=== PATIENT | female | born 1955 | race Caucasian/White ===

== ENCOUNTER → 2017-03-26 | Outpatient (CLI) | payer OTHER ==
[~2017-03-26] MED LIST: IOHEXOL 240 MG/ML 50ML VIAL. ONE; IOHEXOL 300 MG/ML 75 ML VIAL. IV ONE
--- NOTE | 2017-03-26 10:51 | RAD ---
Indication: Sigmoid colon cancer. Diffuse abdominal pain. Technique: Axial images and coronal and sagittal reformatted images are provided. Oral contrast and 75 mL of intravenous Omnipaque 300 was administered without complication. Comparison is from May 01, 2005. One or more of the following individualized dose reduction techniques were utilized for this examination: 1. Automated exposure control 2. Adjustment of the mA and/or kV according to patient size 3. Use of iterative reconstruction technique Findings: There is atelectasis in the lung bases. There is no pleural effusion. The heart is not enlarged. Low-density lesion within the liver dome measures 9 mm, most likely small cyst, was not definite present on prior. Mild intrahepatic and extrahepatic biliary dilation is similar to prior. Gallbladder is unremarkable. Pancreas is fatty replaced. Spleen is not enlarged. There is no adrenal mass. Kidneys are symmetrically perfused. A few areas of cortical scarring in the kidneys are noted. Aorta is normal caliber. There is no mesenteric or retroperitoneal adenopathy. There is no dilated small bowel loop or air-fluid level. There is no definite small bowel mural thickening. Appendix is not clearly visualized. There are a few diverticula in the colon but no findings of diverticulitis. There is a bowel anastomotic suture line noted in the distal descending/proximal sigmoid colon. There is a small fat-containing umbilical hernia. Bladder is unremarkable. There is no adnexal mass. Calcified phleboliths are noted. There is no free pelvic fluid. There is no sidewall adenopathy. Largest sidewall lymph node on the right measures 5 mm short axis and on the left 6 mm. There are degenerative changes in the spine. Impression: 1. Low-density lesion in the liver dome is most likely simple cyst but is a change from prior. Given history of colon cancer, ultrasound should be considered to confirm cyst. 2. Postsurgical changes noted in the descending/sigmoid colon without evidence of local recurrence. 3. Pelvic sidewall lymph nodes are noted although are subcentimeter short axis. These can be reevaluated on follow-up exams. If there are any more recent outside comparisons, comparing to those exams also would be of benefit.
== END | disposition home or self-care (01) ==
LOC: CT 09:11
PROVIDERS: ATTEND Nurse Practitioner Family
DX: K57.30 Diverticulosis of large intestine without perforation or abscess without bleeding (principal); K42.9 Umbilical hernia without obstruction or gangrene; J98.11 Atelectasis; Z85.038 Personal history of other malignant neoplasm of large intestine; Z98.890 Other specified postprocedural states
CPT/HCPCS: 74177; Q9966; Q9967

== ENCOUNTER 2019-02-24 02:11 | Observation (INO) | payer MEDICAID, OTHER ==
[~2019-02-24] VITALS: Ht 162.6 cm; Wt 73.7 kg
--- NOTE | 2019-02-24 02:47 | PHYS DOC ---
Past History Past Medical History: Other Additional Past Medical Histor: colon cancer, cirrhosis of the liver Past Surgical History: Hysterectomy, Other Additional Past Surgical Histo: surgery for colon cancer Alcohol Use: Occasionally Drug Use: None Adult General Chief Complaint Chief Complaint: NAUSEA/VOMITING/DIARRHEA HPI HPI 63-year-old female presents with intermittent left-sided abdominal pain. She has had a cramping pain off and on for the last couple of days. She presents to the emergency room via EMS today because the pain overnight has gotten worse and is persistent. She is also had nausea and vomiting. She had a couple episodes of diarrhea yesterday. Patient has a history of colon cancer more than 10 years ago, but has not been getting follow-up colonoscopies. She had surgery at that time. She denies fever or chills. Review of Systems Review of Systems Constitutional: Denies fever or chills [] Eyes: Denies change in visual acuity, redness, or eye pain [] HENT: Denies nasal congestion or sore throat [] Respiratory: Denies cough or shortness of breath [] Cardiovascular: No additional information not addressed in HPI [] GI: Sided abdominal pain, nausea, vomiting, diarrhea [] : Denies dysuria or hematuria [] Musculoskeletal: Denies back pain or joint pain [] Integument: Denies rash or skin lesions [] Neurologic: Denies headache, focal weakness or sensory changes [] Endocrine: Denies polyuria or polydipsia [] All other systems were reviewed and found to be within normal limits, except as documented in this note. Current Medications Current Medications Current Medications Medications (Trade) Dose Ordered Sig/[facility] Start Time Stop Time Status Last Admin Dose Admin Ondansetron HCl (Zofran) 4 mg 1X ONCE 02/24/19 03:00 02/24/19 03:01 Sodium Chloride 1,000 ml @ 1,000 mls/hr 1X ONCE 02/24/19 03:00 02/24/19 03:59 Allergies Allergies Allergies Coded Allergies Type Severity Reaction Last Updated Verified No Known Drug Allergies 03/26/17 No Physical Exam Physical Exam Constitutional: Well developed, well nourished, mild acute distress, non-toxic appearance. [] HENT: Normocephalic, atraumatic, bilateral external ears normal, oropharynx moist, no oral exudates, nose normal. [] Eyes: PERRLA, EOMI, conjunctiva normal, no discharge. [] Neck: Normal range of motion, no tenderness, supple, no stridor. [] Cardiovascular:Heart rate regular rhythm, no murmur [] Lungs & Thorax: Bilateral breath sounds clear to auscultation [] Abdomen: Bowel sounds normal, soft, left lower quadrant, no masses, no pulsatile masses. [] Skin: Warm, dry, no erythema, no rash. [] Back: No tenderness, no CVA tenderness. [] Extremities: No tenderness, no cyanosis, no clubbing, ROM intact, no edema. [] Neurologic: Alert and oriented X 3, normal motor function, normal sensory fun ction, no focal deficits noted. [] Psychologic: Affect normal, judgement normal, mood normal. [] Current Patient Data Vital Signs Vital Signs Date Time Temp Pulse Resp B/P (MAP) Pulse Ox O2 Delivery O2 Flow Rate FiO2 02/24/19 02:14 97.4 71 18 95 Room Air EKG EKG [] Radiology/Procedures Radiology/Procedures [] Impressions: Examination: CT of the abdomen pelvis with IV contrast HISTORY: History of left lower quadrant abdominal pain COMPARISON: 03/26/2017 TECHNIQUE: Axial CT images of the abdomen pelvis were performed with IV contrast. Coronal and sagittal reformats are performed. Exposure: One or more of the following individualized dose reduction techniques were utilized for this examination: 1. Automated exposure control 2. Adjustment of the mA and/or kV according to patient size 3. Use of iterative reconstruction technique FINDINGS: Bibasilar lung airspace opacities likely atelectasis or infiltrates. No evidence of free air identified in the abdomen. Dilated appearing intrahepatic bile ducts and common bile duct. The common bile duct measuring 1.6 cm in transverse dimension increased compared to prior exam. Severe inflammatory fat stranding identified about the pancreas likely acute pancreatitis. The spleen, adrenals grossly appears unremarkable. The bilateral kidneys enhance symmetrically. The stomach is mildly distended. The small bowel is nondilated. Feces and gas noted in the colon. Few scattered sigmoid colon diverticulosis identified. The urinary bladder is mildly distended. The caliber of the aorta grossly appears unremarkable. Moderate degenerative changes lumbar spine most at L2-L3 vertebral level. IMPRESSION: 1. Severe inflammatory fat stranding identified about the pancreas likely acute pancreatitis. 2. Dilated appearing intrahepatic and common bile duct increased since prior exam. Distal common bile duct obstruction is not excluded. Electronically signed by: Mahendra Rosario MD (02/24/2019 4:01 AM) [facility] DICTATED AND SIGNED BY: MAHENDRA ROSARIO MD DATE: 02/24/19 0401 CC: ZIA MORELAND DO; ODALYS RODRIGUEZ MD ~ Course & Med Decision Making Course & Med Decision Making Pertinent Labs and Imaging studies reviewed. (See chart for details) The patient's CT scan is significant for pancreatitis. An obstructive process in the common bile duct could not be excluded. The patient will need an ultrasound in the morning. The patient also has a potassium of 2.5. Give her IV replacement. She has required fentanyl for pain control. She has been given a liter of normal saline. I spoke with Dr. Rodriguez and he would like to keep the patient at this facility at this time. He has accepted her for admission. Given the fact stranding around the pancreas, I will cover the patient with carbapenem. [place] [id number]. [] Dragon Disclaimer Dragon Disclaimer This electronic medical record was generated, in whole or in part, using a voice recognition dictation system. Departure Departure: Impression: Primary Impression: Acute pancreatitis Additional Impression: Hypokalemia Disposition: ADMITTED INPATIENT Admitting Physician: Odalys Rodriguez Condition: STABLE Referrals: ODALYS RODRIGUEZ MD (PCP) Problem Qualifiers Primary Impression: Acute pancreatitis Pancreatitis type: unspecified pancreatitis type Acute pancreatitis complication: unspecified Qualified Codes: K85.90 - Acute pancreatitis without necrosis or infection, unspecified ZIA MORELAND DO Feb 24, 2019 02:47
[2019-02-24] MEDS ORDERED: IV NORMAL SALINE 1,000ML 1,000 ML IV ONE (03:00)
[2019-02-24] MEDS ORDERED: ONDANSETRON PF 4 MG/2 ML VIAL. IVP ONE (03:00)
[2019-02-24 03:04] LABS: ALBUMIN 3.1 g/dL (3.4-5.0); ALBUMIN/GLOBULIN RATIO 0.8 (1.0-1.7); CALCIUM 8.7 mg/dL (8.5-10.1); CREATININE 1.2 mg/dL (0.6-1.0); GFR 45.1; TOTAL PROTEIN 6.9 g/dL (6.4-8.2)
[2019-02-24 03:06] LABS: POTASSIUM 2.5 mmol/L (3.5-5.1)
[2019-02-24 03:09] LABS: BASO % 0 % (0-3); EOS % 0 % (0-3); HEMATOCRIT 41.9 % (36.0-47.0); HEMOGLOBIN 14.3 g/dL (12.0-15.5); LYMPH # 0.7 x10^3/uL (1.0-4.8); LYMPH % 6 % (24-48); MEAN CORPUSCULAR HEMOGLOBIN 32 pg (25-35); MEAN CORPUSCULAR HGB CONC 34 g/dL (31-37); MEAN CORPUSCULAR VOLUME 93 fL (79-100); MONO # 0.7 x10^3/uL (0.0-1.1); MONO % 5 % (0-9); NEUT # 10.8 x10^3uL (1.8-7.7); NEUT % 89 % (31-73); PLATELET COUNT 239 x10^3/uL (140-400); RED BLOOD COUNT 4.51 x10^6/uL (3.50-5.40); RED CELL DISTRIBUTION WIDTH 12.4 % (11.5-14.5); WHITE BLOOD COUNT 12.2 x10^3/uL (4.0-11.0)
[2019-02-24] MEDS ORDERED: CONTRAST GIVEN MC PRN (03:15)
[2019-02-24] MEDS ORDERED: IOHEXOL 300 MG/ML 75 ML VIAL. IV ONE (03:30)
[2019-02-24] MEDS ORDERED: POTASSIUM CL 40MEQ IN 0.9%NACL 1,000 ML IV ONE (04:00)
--- NOTE | 2019-02-24 04:03 | RAD ---
Examination: CT of the abdomen pelvis with IV contrast HISTORY: History of left lower quadrant abdominal pain COMPARISON: 03/26/2017 TECHNIQUE: Axial CT images of the abdomen pelvis were performed with IV contrast. Coronal and sagittal reformats are performed. Exposure: One or more of the following individualized dose reduction techniques were utilized for this examination: 1. Automated exposure control 2. Adjustment of the mA and/or kV according to patient size 3. Use of iterative reconstruction technique FINDINGS: Bibasilar lung airspace opacities likely atelectasis or infiltrates. No evidence of free air identified in the abdomen. Dilated appearing intrahepatic bile ducts and common bile duct. The common bile duct measuring 1.6 cm in transverse dimension increased compared to prior exam. Severe inflammatory fat stranding identified about the pancreas likely acute pancreatitis. The spleen, adrenals grossly appears unremarkable. The bilateral kidneys enhance symmetrically. The stomach is mildly distended. The small bowel is nondilated. Feces and gas noted in the colon. Few scattered sigmoid colon diverticulosis identified. The urinary bladder is mildly distended. The caliber of the aorta grossly appears unremarkable. Moderate degenerative changes lumbar spine most at L2-L3 vertebral level. IMPRESSION: 1. Severe inflammatory fat stranding identified about the pancreas likely acute pancreatitis. 2. Dilated appearing intrahepatic and common bile duct increased since prior exam. Distal common bile duct obstruction is not excluded. Electronically signed by: Mahendra Russo MD (02/24/2019 4:01 AM) [facility]
[2019-02-24] MEDS ORDERED: ONDANSETRON PF 4 MG/2 ML VIAL. IV PRN (04:30)
[2019-02-24] MEDS ORDERED: MEROPENEM 1 GM in IV NORMAL SALINE 100ML 100 ML IV SCH ×2 (05:00→09:00)
[2019-02-24 06:04] VITALS: BP 126/73
[2019-02-24] MEDS ORDERED: ELECTROLYTE (ICU) PROTOCOL. MC PRN (06:30)
[2019-02-24] MEDS ORDERED: IV NORMAL SALINE 1,000ML 1,000 ML IV SCH (07:00)
[2019-02-24] MEDS ORDERED: ENOXAPARIN 40 MG/0.4 ML SYRINGE. SQ SCH (11:00)
[2019-02-24 11:07] VITALS: BP 134/76
[2019-02-24] MEDS ORDERED: ONDANSETRON ODT 4 MG TAB.RAPDIS PO PRN (11:45)
[2019-02-24] MEDS ORDERED: HYDROmorphone 12mg/30ml PCA 30 ML IV PRN (11:45)
[2019-02-24] MEDS ORDERED: NALOXONE 0.4 MG/ML VIAL. IV PRN (11:45)
--- NOTE | 2019-02-24 13:12 | HP ---
ADMIT DATE: 02/24/2019 HISTORY OF PRESENT ILLNESS: The patient is a 63-year-old female who came in through the Emergency Room. When talking to her, she says she has actually been having abdominal pain for several weeks, but felt it would go away. She has intermittent left-sided abdominal pain, cramping pain 9-12/24. The patient had to come in via EMS to the Emergency Room with nausea and vomiting. The patient also had some episodes of diarrhea, has a history in the past of colon cancer 10 years ago, but has not been following up and of course needs a followup on that eventually, but in any case, the patient was admitted with acute pancreatitis. The patient was stable hemodynamically, but obviously was in severe pain. Potassium was also low at 2.5, direct bilirubin, possible obstruction there, elevated liver enzymes and like. The patient is on prophylactic Lovenox. The patient otherwise on exam is in pain. Her blood pressure, however, is 134/76, respiratory rate 20, pulse 70, she is afebrile, 96% oxygen saturation. PAST MEDICAL HISTORY: Hypertension, colon cancer, history of pancreatitis, history of small bowel cancer, history of nausea, vomiting, tubal ligation, hysterectomy, stress incontinence, alcohol and tobacco abuse. SOCIAL HISTORY: The patient continues to smoke, has a [id number] history of smoking as well as alcohol use from time to time. Denies chewing tobacco. The patient is a full code. The patient has had a history of cirrhosis of the liver. FAMILY HISTORY: Father, unknown causes of . ALLERGIES: There are no known allergies. MEDICATIONS: The patient does not take any home meds, it appears. PHYSICAL EXAMINATION: VITAL SIGNS: The patient otherwise on exam as noted above with her vital signs stable. Basically, her blood pressure in the 130s/70, respiratory rate 20, pulse 70, afebrile. HEENT: Head atraumatic, normocephalic. Eyes: PERRLA without jaundice. The mouth and throat were normal. NECK: Supple, without JVD, carotid bruits or thyromegaly. LUNGS: Diminished throughout, but clear. CARDIOVASCULAR: Regular sinus rhythm. ABDOMEN: Soft, nontender, no rebounding or guarding. Positive bowel sounds. There is tenderness in that epigastric to left upper quadrant area. Awaiting for abdominal ultrasound. LABORATORY DATA: Lactic acid has come down. Sodium and potassium 138 and 2.5, lipase 17,000, white count 12, hemoglobin and hematocrit 14 and 41, no left shift. PLAN: The patient will be monitored carefully, placed on IV fluids. Careful monitoring. We get the abdominal ultrasound and then consider for possible transfer. IMPRESSION: Acute on top of chronic pancreatitis, cirrhosis of the liver, hyperbilirubinemia, elevated liver enzymes, hypokalemia. We put her on a [employer] pump because of the severity of her pain. ODALYS RODRIGUEZ MD DR: BELKYS/yan JOB#: [id number] / [id number]
[2019-02-24 15:03] VITALS: BP 138/66
--- NOTE | 2019-02-24 15:47 | RAD ---
Right upper quadrant abdominal ultrasound 02/24/2019 INDICATION: Elevated direct bilirubin. Pancreatitis. COMPARISON STUDY: CT of the abdomen and pelvis, earlier today Discussion: The pancreas is nonvisualized secondary overlying gas filled bowel. The majority of the liver is obscured. Significant intrahepatic biliary dilatation again noted. The liver is poorly visualized and predominantly subcostal in location. Liver is normal in size measuring approximately 16 cm longitudinally. The common bile duct measures 1.4 cm in diameter which is dilated. The gallbladder is poorly visualized. Cholelithiasis appears to be present with shadowing in the gallbladder lumen. Gallbladder appears partially contracted with borderline wall thickening given contracted state at 4 mm. Right kidney measures 9 cm in length and is unremarkable in appearance. Notably intrahepatic biliary dilatation is seen on CT from March 26, 2017. IMPRESSION: 1. Limited study 2. Significant intrahepatic biliary dilatation and dilatation of the common bile duct, similar to CT scan from earlier today. 3. Borderline gallbladder wall thickening. Cholelithiasis. Exam is felt to be limited for evaluation of acute cholecystitis. Consider MRI/MRCP and/or ERCP for further evaluation. Electronically signed by: Teto Alexis MD (02/24/2019 3:45 PM) [facility]
[2019-02-24 18:17] LABS: GFR 55.6
[2019-02-24 18:33] LABS: POTASSIUM 2.7 mmol/L (3.5-5.1)
--- NOTE | 2019-02-26 17:23 | DS ---
DATE OF DISCHARGE: 02/24/2019 HOSPITAL COURSE: A 63-year-old female who has been ill for about a month or so, came in through the Emergency Room, had a slight elevation of her white count but her potassium was low at 2.7. The patient had severe acute cholecystitis and severe pancreatitis. The patient possibly had blockage to her biliary duct as she had elevated liver enzymes, hyperbilirubinemia. Potassium was corrected with a situation of an electrolyte replacement therapy. She had a positive D-dimer, but in the meantime, the patient was transferred down to the [facility] because we did not have a surgical consultation available. Talked to Dr. Aguilar. He agreed to see the patient as soon as she got in to make further evaluation. The patient basically felt comfortable. We started her on a GIG TENDER. Her pain was excruciating. Her labs demonstrated a significant pancreatitis of 17,000 and her bilirubin was elevated, direct bilirubin was 2.1 and total bilirubin 3, AST of ____, alkaline phosphatase 391. Hepatitis screens were negative. IMPRESSION: Acute pancreatitis, acute cholecystitis, elevated liver enzymes, hyperbilirubinemia, hypokalemia (low potassium), moderate protein malnutrition. The patient was transferred via EMS down to the [facility] for further evaluation and treatment. ODALYS RODRIGUEZ MD DR: BELKYS/yan JOB#: [id number] / [id number]
== END 2019-02-24 19:04 | disposition short-term general hospital (02) ==
LOC: ER 02:11 → INTOOBSV 04:00 → 1 SOUTH 04:00
PROVIDERS: ADMIT Family Medicine; ATTEND Family Medicine
DX: K85.90 Acute pancreatitis without necrosis or infection, unspecified (principal); K74.60 Unspecified cirrhosis of liver; E80.6 Other disorders of bilirubin metabolism; R79.89 Other specified abnormal findings of blood chemistry; E87.6 Hypokalemia; F17.200 Nicotine dependence, unspecified, uncomplicated; Z90.710 Acquired absence of both cervix and uterus; Z85.038 Personal history of other malignant neoplasm of large intestine
CPT/HCPCS: 36415; 74177; 76705; 80048; 80053; 82248; 83605; 83690; 84145; 85025; 85379; 86705; 86709; 86803; 87040; 87340; 96361; 96365; 96366; 96368; 96372; 96375; 96376; 99284; G0378; J1170; J1650; J2185; J2405; J3010; Q9967; G0379; 99285-25; J7030

== ENCOUNTER 2019-03-08 09:03 | Emergency (ER) | payer MEDICAID ==
[~2019-03-08] VITALS: Ht 162.6 cm; Wt 77.0 kg
[2019-03-08] MEDS ORDERED: KETOROLAC 15 MG/ML VIAL. IVP ONE (09:15)
[2019-03-08] MEDS ORDERED: IV NORMAL SALINE 1,000ML 1,000 ML IV ONE (09:15)
[2019-03-08 10:06] LABS: HEMOGLOBIN 13.4 g/dL (12.0-15.5); RED BLOOD COUNT 4.28 x10^6/uL (3.50-5.40); RED CELL DISTRIBUTION WIDTH 12.2 % (11.5-14.5); WHITE BLOOD COUNT 11.8 x10^3/uL (4.0-11.0)
[2019-03-08] MEDS ORDERED: IOHEXOL 300 MG/ML 75 ML VIAL. IV ONE (10:15)
[2019-03-08 10:36] LABS: CALCIUM 8.9 mg/dL (8.5-10.1); CREATININE 1.1 mg/dL (0.6-1.0); GFR 49.8; POTASSIUM 3.9 mmol/L (3.5-5.1)
[2019-03-08 10:41] LABS: ALBUMIN 2.8 g/dL (3.4-5.0); ALBUMIN/GLOBULIN RATIO 0.7 (1.0-1.7); TOTAL BILIRUBIN 0.9 mg/dL (0.2-1.0); TOTAL PROTEIN 6.7 g/dL (6.4-8.2)
--- NOTE | 2019-03-08 11:01 | PHYS DOC ---
Text Text Diagnosis Postop abdominal pain To be transferred to for further evaluation General Chief Complaint: POST-OP PROBLEM Stated Complaint: post-op pain Time Seen by MD: 09:08 Source: patient Exam Limitations: no limitations History of Present Illness Initial Comments 63-year-old female who had the upper scopic cholecystectomy last week at presented to the emergency department with right upper quadrant abdominal pain radiates to the right shoulder lower described as a sharp constant pain for the past 48 hours no nausea no vomiting no diarrhea no fever no chills no bleeding from the wound sites Allergies: Coded Allergies: No Known Drug Allergies (Unverified , 03/26/17) Past Medical History Surgical History: cholecystectomy Social History Drugs: none Review of Systems All Other Systems: Reviewed and Negative Physical Exam General Appearance: WD/WN, mild distress Neck: non-tender, full range of motion, supple Respiratory: chest non-tender, lungs clear, normal breath sounds Cardiovascular: normal peripheral pulses, regular rate, rhythm, no edema Gastrointestinal: normal bowel sounds, no organomegaly, no pulsatile mass, tenderness Skin: normal color, warm/dry Lymphatic: no adenopathy, axilla node tender (R) ADRIEL LANCE MD Mar 08, 2019 11:01
--- NOTE | 2019-03-08 12:04 | RAD ---
PQRS Compliance Statement: One or more of the following individualized dose reduction techniques were utilized for this examination: 1. Automated exposure control 2. Adjustment of the mA and/or kV according to patient size 3. Use of iterative reconstruction technique CT abdomen/pelvis with contrast 03/08/2019 9:08 AM INDICATION: Right upper quadrant abdominal pain. Status post cholecystectomy one week ago. COMPARISON: CT abdomen/pelvis 02/24/2019 TECHNIQUE: Multiple axial CT images of the abdomen and pelvis were obtained after the intravenous administration of 63 mL Isovue-370. Coronal and sagittal reformats are provided. FINDINGS: There is bibasilar subsegmental atelectasis. Heart size is within normal limits. There is homogeneous enhancement of the hepatic parenchyma with stable cyst in the right hepatic dome measuring 11 mm. There is decrease in now moderate intrahepatic and extrahepatic biliary ductal dilatation. There is wall enhancement and thickening involving the common bile duct which may be seen with cholangitis. Cholecystectomy changes are present. Small volume free fluid is noted in the right upper quadrant abdomen. Spleen is normal in appearance. Adrenal glands are normal. Mild fatty atrophy of the pancreas. No significant peripancreatic plantar changes. Abdominal aorta is normal in course and caliber. No pathologically enlarged lymph nodes are identified in abdomen and pelvis. There is no free intraperitoneal air. The kidneys enhance symmetrically. There is no suspicious renal mass. There is no hydronephrosis. There are no suspected calculi within the kidneys, ureters or urinary bladder. Oral contrast was administered. Opacified bowel loops demonstrate normal mucosal fold pattern. Small and large bowel are normal in caliber. There is no evidence for bowel obstruction. There are no pericolonic inflammatory changes. Appendix is not definitively visualized. Mild colonic diverticulosis is noted. Urinary bladder is within normal limits given degree of distention. No suspicious pelvic mass is visualized. Moderate degenerative disc disease noted at L2-L3. No suspicious osseous abnormality is visualized. IMPRESSION: 1. Cholecystectomy changes are present with decrease in now moderate intrahepatic and extra hepatic biliary ductal dilatation. There is increased wall thickening and enhancement involving the common bile duct which may represent cholangitis. Correlate with hepatobiliary enzymes. 2. There is small volume free fluid identified in the right upper quadrant abdomen. Biliary leak remains in the differential. Electronically signed by: Radha Hannah MD (03/08/2019 12:01 PM) [facility]
[2019-03-08] MEDS ORDERED: PIPERACILLIN/TAZOBACTAM 3.375 GM in IV NORMAL SALINE 50ML 50 ML IV ONE (12:15)
[2019-03-08] MEDS ORDERED: MORPHINE SULFATE 4 MG/ML DISP.SYRIN. IV ONE ×2 (12:15→14:15)
[2019-03-08] MEDS ORDERED: IV NORMAL SALINE 50ML 50 ML ONE (12:17)
[2019-03-08] MEDS ORDERED: PIPERACILLIN/TAZOBACTAM 3.375 GM VIAL IV ONE (12:17)
[2019-03-08 12:47] VITALS: BP 128/77
[2019-03-08 12:51] LABS: AMORPHOUS SEDIMENT,UR PRESENT /HPF; BACTERIA,URINE 0 /HPF (0-FEW); BILIRUBIN,URINE NEG (NEG); CLARITY,URINE CLEAR; COLOR,URINE YELLOW; GLUCOSE,URINE NEG (NEG); NITRITE,URINE NEG (NEG); RBC,URINE OCC /HPF (0-2); SQUAMOUS EPITHELIAL CELL,UR FEW /LPF; UROBILINOGEN,URINE 0.2 mg/dL (0.2 mg/dL)
--- NOTE | 2019-03-09 06:08 | EKG ---
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
== END 2019-03-08 15:20 | disposition short-term general hospital (02) ==
LOC: ER 09:03
DX: G89.18 Other acute postprocedural pain (principal); R10.11 Right upper quadrant pain; Z90.49 Acquired absence of other specified parts of digestive tract
CPT/HCPCS: 36415; 74177; 80053; 81001; 83690; 85027; 93005; 96365; 96375; 96376; 99285; J1885; J2270; J2543; Q9967; J7030

== ENCOUNTER → 2019-03-15 | Outpatient (CLI) | payer MEDICAID ==
[2019-03-08 12:47] VITALS: BP 128/77
[~2019-03-15] MED LIST changes: +ACYC800T PO; +HYDR-3165 PO; -IOHEXOL 240 MG/ML 50ML VIAL. ONE; -IOHEXOL 300 MG/ML 75 ML VIAL. IV ONE; +OXYC5TAB4 PO
[2019-03-15 10:57] LABS: BASO # 0.1 x10^3/uL (0.0-0.2); BASO % 1 % (0-3); EOS # 0.5 x10^3/uL (0.0-0.7); EOS % 5 % (0-3); HEMATOCRIT 38.2 % (36.0-47.0); HEMOGLOBIN 13.3 g/dL (12.0-15.5); LYMPH # 1.4 x10^3/uL (1.0-4.8); LYMPH % 14 % (24-48); MEAN CORPUSCULAR HEMOGLOBIN 32 pg (25-35); MEAN CORPUSCULAR HGB CONC 35 g/dL (31-37); MEAN CORPUSCULAR VOLUME 91 fL (79-100); MONO # 0.8 x10^3/uL (0.0-1.1); MONO % 8 % (0-9); NEUT # 7.4 x10^3uL (1.8-7.7); NEUT % 73 % (31-73); PLATELET COUNT 361 x10^3/uL (140-400); RED BLOOD COUNT 4.21 x10^6/uL (3.50-5.40); RED CELL DISTRIBUTION WIDTH 12.2 % (11.5-14.5); WHITE BLOOD COUNT 10.2 x10^3/uL (4.0-11.0)
== END | disposition home or self-care (01) ==
LOC: LAB 10:17
PROVIDERS: ATTEND Internal Medicine
DX: K83.09 Other cholangitis (principal)
CPT/HCPCS: 36415; 85025

== ENCOUNTER 2019-03-18 10:01 | Emergency (ER) | payer MEDICAID ==
[~2019-03-18] VITALS: Ht 162.6 cm; Wt 77.0 kg
[2019-03-18] MEDS ORDERED: ACYC800T PO (10:25)
[2019-03-18] MEDS ORDERED: HYDR-3165 PO (10:25)
--- NOTE | 2019-03-18 10:25 | PHYS DOC ---
Past History Past Medical History: Cancer Additional Past Medical Histor: colon cancer, cirrohsis of the liver Past Surgical History: Cholecystectomy, Hysterectomy, Oophorectomy Additional Past Surgical Histo: surgery for colon cancer; partial amputation left foot Alcohol Use: Occasionally Drug Use: None Adult General Chief Complaint Chief Complaint: SKIN PROBLEM [facility] HPI Patient is a 63-year-old female who presented to ER today for evaluation of a painful rash on the right side of her buttock that spread to her right groin area started 4 days ago. SHe denies any fever. Patient denies any history of cancer that she is currently under chemotherapy treatment anything like that. All other ROS is negative unless otherwise noted in HPI Review of Systems Review of Systems See above Allergies Allergies Allergies Coded Allergies Type Severity Reaction Last Updated Verified No Known Drug Allergies 03/18/19 No Physical Exam Physical Exam See above Constitutional: Well developed, well nourished, no acute distress, non-toxic appearance. [] HENT: Normocephalic, atraumatic, bilateral external ears normal, oropharynx moist, no oral exudates, nose normal. [] Eyes: PERRLA, EOMI, conjunctiva normal, no discharge. [] Neck: Normal range of motion, no tenderness, supple, no stridor. [] Cardiovascular:Heart rate regular rhythm, no murmur [] Lungs & Thorax: Bilateral breath sounds clear to auscultation [] Abdomen: Bowel sounds normal, soft, no tenderness, no masses, no pulsatile masses. [] Skin: large amount of rash with blisters on right side buttock, right groin and right inner thigh, not crossing midline. Back: No tenderness, no CVA tenderness. [] Extremities: No tenderness, no cyanosis, no clubbing, ROM intact, no edema. [] Neurologic: Alert and oriented X 3, normal motor function, normal sensory function, no focal deficits noted. [] Psychologic: Affect normal, judgement normal, mood normal. [] Current Patient Data Vital Signs Vital Signs Date Time Temp Pulse Resp B/P (MAP) Pulse Ox O2 Delivery O2 Flow Rate FiO2 03/18/19 10:10 97.7 91 18 97 Room Air EKG EKG [] Radiology/Procedures Radiology/Procedures [] Course & Med Decision Making Course & Med Decision Making Pertinent Labs and Imaging studies reviewed. (See chart for details) [] Dragon Disclaimer Dragon Disclaimer This electronic medical record was generated, in whole or in part, using a voice recognition dictation system. Departure Departure: Impression: Primary Impression: Shingles rash Disposition: HOME, SELF-CARE Condition: STABLE Referrals: ODALYS RODRIGUEZ MD (PCP) please follow up with your doctor on Friday for reevaluation Patient Instructions: Shingles Scripts Oxycodone Hcl (OXYCODONE HCL IMMED.RELEASE ) 5 Mg Tablet 5 MG PO PRN Q6HRS PRN for PAIN, #20 TAB Prov: ODALYS IBARRA DO 03/18/19 Acyclovir (ACYCLOVIR) 800 Mg Tablet 1 TAB PO 5XDAY for shingles for 10 Days, #50 TAB Prov: ODALYS IBARRA DO 03/18/19 ODALYS IBARRA DO Mar 18, 2019 10:25
[2019-03-18] MEDS ORDERED: OXYC5TAB4 PO (10:39)
[2019-03-18 10:45] VITALS: BP 105/77
== END 2019-03-18 10:46 | disposition home or self-care (01) ==
LOC: ER 10:01
DX: B02.9 Zoster without complications (principal)
CPT/HCPCS: 99283

== ENCOUNTER 2019-06-28 23:15 | Observation (INO) | payer MEDICAID ==
[~2019-06-28] VITALS: Ht 162.6 cm; Wt 72.0 kg
--- NOTE | 2019-06-28 23:28 | PHYS DOC ---
Past History Past Medical History: Cancer Additional Past Medical Histor: colon cancer, cirrohsis of the liver Past Surgical History: Cholecystectomy, Hysterectomy, Oophorectomy Additional Past Surgical Histo: surgery for colon cancer; partial amputation left foot Alcohol Use: Occasionally Drug Use: None General Adult HPI: HPI: ..." Oh....please give me something.. ..I can't stop vomiting..I am dry heaving... my gut hurts all over....I am so sick... I feel like got...the flu...or something...'[ Patient is a 63 year old female who presents with above hx and complaints of a bdomen pain, nausea, vomiting, currently dry heaving, malaise, arthralgia, myalgia. Patient has generalized abdomen pain with some localization to left upper quadrant and mid abdomen. Patient currently dry heaving. Patient states she did eat a veggie burger at approximately 1700 hrs. with sunflower seeds. At 2000 hours patient has generalized severe abdomen pain and active vomiting. Patient states she vomited up her entire 1700 meal and continued to vomit or dry heaves since then. Patient rates her generalized abdomen pain is 10 out of 10. Nothing relieves the pain. Patient does have history of previous abdomen surgeries including hysterectomy, oophorectomy, cholecystectomy. Patient has had recent travel to [place] on Friday. Patient denies any specific ill contacts. Patient denies any history significant immunosuppression. Patient has known history of diabetes, colon cancer, hypertension and tobacco use. Patient normally follows with Dr. Butts. Review of Systems: Review of Systems: Constitutional: Subjective history of fever or chills Eyes: Denies change in visual acuity HENT: Denies nasal congestion or sore throat Respiratory: History of a nonproductive cough and shortness of breath Cardiovascular: Denies chest pain or edema GI: Complains of severe abdominal pain, nausea, vomiting, . : Denies dysuria Musculoskeletal: Complains of generalized myalgia. Integument: Denies rash Neurologic: Denies headache, focal weakness or sensory changes Endocrine: Denies polyuria or polydipsia Lymphatic: Denies swollen glands Psychiatric: Denies depression or anxiety Heart Score: Risk Factors: Risk Factors: DM, Current or recent (<one month) smoker, HTN, HLP, family history of CAD, obesity. Risk Scores: Score 0 - 3: 2.5% MACE over next 6 weeks - Discharge Home Score 4 - 6: 20.3% MACE over next 6 weeks - Admit for Clinical Observation Score 7 - 10: 72.7% MACE over next 6 weeks - Early Invasive Strategies Family History: Family History: Noncontributory to presentation Current Medications: Current Meds: See nursing for home meds Allergies: Allergies: Allergies Coded Allergies Type Severity Reaction Last Updated Verified No Known Drug Allergies 03/18/19 No Physical Exam: PE: Constitutional: in acute distress, non-toxic appearance. [] HENT: Normocephalic, atraumatic, bilateral external ears normal, oropharynx dry, no oral exudates, nose normal. [] Edentulous Eyes: PERRLA, EOMI, conjunctiva normal, no discharge. [] Neck: Normal range of motion, no tenderness, supple, no stridor. [] Cardiovascular: Bradycardia heart rate regular rhythm, no murmur [] PMI to the left Lungs & Thorax: Bilateral breath sounds equal at apex with scattered wheezes on auscultation [] Abdomen: Bowel sounds hyperactive, soft, generalized tenderness, no masses, no pulsatile masses. Old surgery scars Skin: Warm, dry, no erythema, no rash. [] Back: No tenderness, no CVA tenderness. [] Extremities: No tenderness, no cyanosis, no clubbing, ROM intact, no edema. Arthritic changes Neurologic: Alert and oriented X 3, moves extremities on request distal sensory function, no gross focal deficits noted. [] Psychologic: Affect anxious, judgement normal, mood tearful EKG: EKG: My interpretation of EKG shows a sinus bradycardia at 54 bpm. Does have some contour abnormality in the anterior lateral leads. But no findings of acute STEMI with contralateral changes. There are inverted T waves in V1,2 and 3 [] Radiology/Procedures: Radiology/Procedures: [] IMAGING REPORT Signed PATIENT: SARAH REICH ACCOUNT: [id number] : 1955 LOCATION: ER AGE: 63 SEX: F EXAM STATUS: REG ER ORD. PHYSICIAN: RAMBO MARTINEZ MD REASON: ABD. PAIN, N/V, X 2 DAYS PROCEDURE: ACUTE ABDOMEN SERIES EXAM: Frontal view of the chest, AP views of the abdomen in upright and supine positions. CLINICAL INDICATION: Abdominal pain, nausea vomiting COMPARISON: None. FINDINGS and IMPRESSION: The heart is not enlarged. Aorta is tortuous. Linear opacities left greater the right midlung likely scarring/atelectasis. No lobar consolidation. No pleural effusion or pneumothorax. No abnormal small or large bowel dilatation. Moderate colonic stool content. No abnormal soft tissue mass effect. No suspicious calcifications are seen. No free intraperitoneal gas. Cholecystectomy clips are seen. Leftward curvature of the lumbar spine. Electronically signed by: David Tobar MD (06/29/2019 12:46 AM) [facility] DICTATED AND SIGNED BY: DAVID TOBAR MD DATE: 06/29/1947 CC: ODALYS RODRIGUEZ MD; RAMBO MARTINEZ MD ~ Course & Med Decision Making: Course & Med Decision Making Pertinent Labs and Imaging studies reviewed. (See chart for details) Pt. admitted to Dr. Rodriguez for further eval. and tx. Impression: 1. Acute abdomen pain 2. Nausea vomiting 3. Viral syndrome 4. Elevated bili total 3.2 direct 1.5, AST 303, ALT 120, alk phos 156 5. Diabetes glucose 133 6. Viral syndrome [] Dragon Disclaimer: Tiki Disclaimer: This electronic medical record was generated, in whole or in part, using a voice recognition dictation system. Departure Departure: Disposition: 01 HOME/RESIDENCE PRIOR TO ADM Condition: STABLE Referrals: ODALYS RODRIGUEZ MD (PCP) Tiki Disclaimer This chart was dictated in whole or in part using Voice Recognition software in a busy, high-work load, and often noisy Emergency Department environment. It may contain unintended and wholly unrecognized errors or omissions. RAMBO MARTINEZ MD Jun 28, 2019 23:28
[2019-06-28] MEDS ORDERED: IV RINGERS SOLUTION,LACTATED 1,000 ML IV SCH (23:45)
[2019-06-29 00:02] LABS: BASO % 0 % (0-3); EOS # 0.1 x10^3/uL (0.0-0.7); EOS % 1 % (0-3); HEMATOCRIT 44.3 % (36.0-47.0); HEMOGLOBIN 15.1 g/dL (12.0-15.5); LYMPH # 1.3 x10^3/uL (1.0-4.8); LYMPH % 16 % (24-48); MEAN CORPUSCULAR HEMOGLOBIN 31 pg (25-35); MEAN CORPUSCULAR HGB CONC 34 g/dL (31-37); MEAN CORPUSCULAR VOLUME 90 fL (79-100); MONO # 0.6 x10^3/uL (0.0-1.1); MONO % 7 % (0-9); NEUT # 6.6 x10^3uL (1.8-7.7); NEUT % 77 % (31-73); PLATELET COUNT 190 x10^3/uL (140-400); RED BLOOD COUNT 4.92 x10^6/uL (3.50-5.40); RED CELL DISTRIBUTION WIDTH 13.4 % (11.5-14.5); WHITE BLOOD COUNT 8.6 x10^3/uL (4.0-11.0)
--- NOTE | 2019-06-29 00:04 | EKG ---
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 CONSIDER ANTEROLATERAL MYOCARDIAL DAMAGE Electronically Signed On 06-29-2019 11:23:13 CDT by Diaz Coombs
[2019-06-29] MEDS ORDERED: ONDANSETRON PF 4 MG/2 ML VIAL. ONE (00:05)
[2019-06-29 00:12] LABS: CALCIUM 9.7 mg/dL (8.5-10.1); GFR 55.6; POTASSIUM 3.4 mmol/L (3.5-5.1)
[2019-06-29 00:24] LABS: ALBUMIN 3.7 g/dL (3.4-5.0); DIRECT BILIRUBIN 1.5 mg/dL (0.0-0.2); MAGNESIUM 1.8 mg/dL (1.8-2.4); TOTAL BILIRUBIN 3.2 mg/dL (0.2-1.0); TOTAL PROTEIN 7.2 g/dL (6.4-8.2)
[2019-06-29] MEDS ORDERED: ONDANSETRON PF 4 MG/2 ML VIAL. IVP ONE (00:30)
--- NOTE | 2019-06-29 00:49 | RAD ---
EXAM: Frontal view of the chest, AP views of the abdomen in upright and supine positions. CLINICAL INDICATION: Abdominal pain, nausea vomiting COMPARISON: None. FINDINGS and IMPRESSION: The heart is not enlarged. Aorta is tortuous. Linear opacities left greater the right midlung likely scarring/atelectasis. No lobar consolidation. No pleural effusion or pneumothorax. No abnormal small or large bowel dilatation. Moderate colonic stool content. No abnormal soft tissue mass effect. No suspicious calcifications are seen. No free intraperitoneal gas. Cholecystectomy clips are seen. Leftward curvature of the lumbar spine. Electronically signed by: David Palacio MD (06/29/2019 12:46 AM) [place]
[2019-06-29] MEDS ORDERED: FAMOTIDINE 20 MG/2 ML VIAL ONE (01:05)
[2019-06-29] MEDS ORDERED: MAGNESIUM HYDROXIDE 2,400 MG/30 ML ORAL.SUSP. ONE (01:05)
[2019-06-29] MEDS ORDERED: ONDANSETRON PF 4 MG/2 ML VIAL. IVP PRN (01:30)
[2019-06-29] MEDS ORDERED: MAGNESIUM HYDROXIDE 2,400 MG/30 ML ORAL.SUSP. PO ONE (01:30)
[2019-06-29] MEDS: IV RINGERS SOLUTION,LACTATED 1,000 ML IV SCH ×2 (01:30→11:30)
[2019-06-29] MEDS ORDERED: FAMOTIDINE 20 MG/2 ML VIAL IVP ONE (01:30)
[2019-06-29 01:37] LABS: BARBITURATES NEG (NEG); BENZODIAZEPINES NEG (NEG); CANNABINOIDS NEG (NEG); COCAINE NEG (NEG); METHADONE NEG (NEG); OPIATES NEG (NEG); PHENCYCLIDINE NEG (NEG)
[2019-06-29 01:41] LABS: BACTERIA,URINE FEW /HPF (0-FEW); BILIRUBIN,URINE NEG (NEG); CLARITY,URINE CLEAR; COLOR,URINE YELLOW; GLUCOSE,URINE NEG (NEG); NITRITE,URINE NEG (NEG); RBC,URINE 0 /HPF (0-2); SQUAMOUS EPITHELIAL CELL,UR OCC /LPF
[2019-06-29 01:51] LABS: AMPHETAMINE/METHAMPHETAMINE NEG (NEG)
[2019-06-29 04:00] VITALS: BP 157/84
[2019-06-29 05:24] LABS: INFLUENZA A PATIENT NEGATIVE (NEGATIVE); INFLUENZA B PATIENT NEGATIVE (NEGATIVE)
[2019-06-29] MEDS: ACETAMINOPHEN 325 MG TABLET PO PRN ×2 (06:02→21:33)
[2019-06-29 06:29] VITALS: BP 139/89
[2019-06-29] MEDS ORDERED: IPRATRPIUM/ALBUTEROL 0.5/2.5MG 3 ML NEBU. NEB SCH (08:00)
[2019-06-29 09:35] LABS: ALBUMIN 2.9 g/dL (3.4-5.0); CALCIUM 8.8 mg/dL (8.5-10.1); CREATININE 1.2 mg/dL (0.6-1.0); DIRECT BILIRUBIN 2.1 mg/dL (0.0-0.2); GFR 45.1; POTASSIUM 3.1 mmol/L (3.5-5.1); TOTAL BILIRUBIN 4.8 mg/dL (0.2-1.0)
[2019-06-29 11:19] VITALS: BP 121/69
--- NOTE | 2019-06-29 13:11 | HP ---
ADMIT DATE: 06/29/2019 HISTORY OF PRESENT ILLNESS: A 63-year-old female who came into the Emergency Room. The patient has been having for the last 24 hours severe nausea and vomiting with abdominal pain. The patient has been unable to keep anything down. She has been having dry heave. She also complains of left upper quadrant and mid abdominal pain. She notes this has been going on for about 8-10 hours, recognizes the pain as approximately 10/10. The patient has previous histories of surgery in the past. Because of the patient's severe abdominal pain with nausea and vomiting intractable, the patient was admitted in the hospital for further evaluation and treatment. PAST MEDICAL HISTORY: Colon cancer, cirrhosis of the liver, diabetes, COPD, pancreatitis, incontinence, amputation of the left foot and alcohol abuse. IMMUNIZATION: Influenza vaccine up-to-date. ALLERGIES: No known allergies. FAMILY HISTORY: Family's deaths are unknown. SOCIAL HISTORY: The patient smokes about a pack of cigarettes a day, [id number] history of smoking and has not had a drink here for the last couple of weeks as the bars have been closed, otherwise she has drunk fairly heavily in the past, has cirrhosis of the liver. REVIEW OF SYSTEMS: The patient does have fever and chills. Denies any chest pain. Does have some mild shortness of breath, does have severe nausea and vomiting intractable with severe abdominal pain mid epigastric to left upper quadrant area. She denies any melena, hematochezia, hematemesis. Urinating okay and her extremities, except for the left foot of course are normal. Neurologically baseline. PHYSICAL EXAMINATION: GENERAL: This is a pleasant white female, in moderate amount of discomfort. VITAL SIGNS: Her blood pressure varies 157/84, respiratory rate 20, pulse 90, temperature 101.5. HEENT: The patient's otherwise head is atraumatic, normocephalic. Eyes: PERRL. No jaundice noted. Mouth and throat: Poor dentition. NECK: Supple. LUNGS: Diminished primarily in the bases. CARDIOVASCULAR: Regular sinus rhythm. S1, S2. ABDOMEN: Definite tenderness in the right upper quadrant area and epigastric area to light touch, some mild guarding, no rebounding. Positive bowel sounds. Stool hemoccult negative. NEUROLOGIC: The patient is alert and oriented x 3. LABORATORY DATA: The patient's CBC is unremarkable. Chemistries show marked elevation of her AST of 369, ALT of 282, alkaline phosphatase 173, bili normal, lipase ____, albumin 3.1. Electrolytes: Potassium (____). Protime normal. Drug screen negative. UA unremarkable. Serology: Influenza A, B negative. Apparently has been swabbed for COVID-19 that is pending. IMPRESSION: Therefore of severe nausea, vomiting, intractable abdominal pain, history of cirrhosis of the liver, abnormal liver enzymes, dehydration, abdominal series unremarkable, history of alcoholism, dehydration as noted, type 2 diabetes. PLAN: The patient will be monitored, placed on fluids, electrolyte replacement. We will try to do an abdominal ultrasound and make further evaluation on her, get her nausea and vomiting under control, fluids. Wait for COVID-19 report to be returned. ODALYS RODRIGUEZ MD DR: BELKYS/yan JOB#: [id number] / [id number]
[2019-06-29 15:20] VITALS: BP 128/81
[2019-06-29] MEDS ORDERED: ALBU2.5V8 IH (15:33)
[2019-06-29] MEDS ORDERED: BUDE90AE INH (15:33)
[2019-06-29] MEDS ORDERED: POTASSIUM CHLORIDE 20 MEQ TABLET.ER. PO ONE (19:15)
[2019-06-29 19:50] VITALS: BP 114/81
[2019-06-29 23:41] VITALS: BP 100/64
[2019-06-30] MEDS ORDERED: ACETAMINOPHEN 325 MG TABLET PO PRN (01:45)
[2019-06-30 05:51] VITALS: BP 90/67
[2019-06-30 06:02] LABS: BASO % 0 % (0-3); EOS # 0.4 x10^3/uL (0.0-0.7); EOS % 6 % (0-3); HEMATOCRIT 41.4 % (36.0-47.0); HEMOGLOBIN 13.9 g/dL (12.0-15.5); LYMPH # 0.9 x10^3/uL (1.0-4.8); LYMPH % 14 % (24-48); MEAN CORPUSCULAR HEMOGLOBIN 31 pg (25-35); MEAN CORPUSCULAR HGB CONC 34 g/dL (31-37); MEAN CORPUSCULAR VOLUME 92 fL (79-100); MONO # 0.5 x10^3/uL (0.0-1.1); MONO % 8 % (0-9); NEUT # 4.8 x10^3uL (1.8-7.7); NEUT % 73 % (31-73); PLATELET COUNT 137 x10^3/uL (140-400); RED BLOOD COUNT 4.52 x10^6/uL (3.50-5.40); RED CELL DISTRIBUTION WIDTH 13.4 % (11.5-14.5); WHITE BLOOD COUNT 6.6 x10^3/uL (4.0-11.0)
[2019-06-30 06:07] LABS: CREATININE 0.9 mg/dL (0.6-1.0); GFR 62.8; POTASSIUM 3.9 mmol/L (3.5-5.1)
--- NOTE | 2019-06-30 10:03 | RAD ---
Limited abdominal ultrasound. INDICATION: Elevated liver function tests and abdominal pain. Concern for local tumor. History of 3 surgeries to remove gallbladder and stones per patient. COMPARISON: Abdomen and pelvis CT with IV contrast 03/08/2019, obstructive series of 06/29/2019. TECHNIQUE: Grayscale and color Doppler imaging as well as spectral Doppler imaging of the right upper quadrant abdomen was performed. FINDINGS: The liver is poorly visualized due to bowel gas. It measures approximately 14.8 cm and there is intrahepatic and extrahepatic biliary dilation with the common bile duct measuring 12.5 mm. The gallbladder is absent. No definite fluid collection identified within the gallbladder fossa. The pancreas and IVC are not well seen due to bowel gas. The right kidney measures 8.5 x 4.2 x 4.2 cm and appears somewhat atrophic. No hydronephrosis or shadowing stones. No significant ascites identified. IMPRESSION: Biliary dilation postcholecystectomy with no definite choledocholithiasis identified on ultrasound. Exam limited by bowel gas. Electronically signed by: Fer Cormier MD (06/30/2019 10:00 AM) [id number]
--- NOTE | 2019-06-30 10:45 | DISCH ---
DISCHARGE ORDERS CONDITION AT DISCHARGE: Stable DISCHARGE MEDICATIONS: Home Meds Reported Medications Budesonide (PULMICORT FLEXHALER) 90 Mcg Aer.pow.ba, 1 PUFF INH BID for SHORTNESS OF AIR 06/29/19 Albuterol Sulfate (PROAIR HFA INHALER) 8.5 Gm Hfa.aer.ad, 1-2 PUFF IH Q4HRS PRN for SHORTNESS OF BREATH 06/29/19 ODALYS RODRIGUEZ MD Jun 30, 2019 10:45
--- NOTE | 2019-06-30 11:13 | DS ---
DATE OF DISCHARGE: HOSPITAL COURSE: This is a pleasant 63-year-old female, initially came in through the Emergency Room with severe nausea, vomiting, abdominal discomfort. The patient was having dry heaves. This has been going on for about 8-10 hours prior to admission and rated the pain about 10/10. The patient's workup demonstrated negative for any signs of pancreatitis, which she has had problems before, but her liver enzymes were markedly elevated to 369, 282 and 173 respectively of AST, ALT and alkaline phosphatase with an elevated total bilirubin of 4.8. She did not look jaundiced. The patient did have an ultrasound, which really did not show anything in particular, shows some biliary dilatation post-cholecystectomy with no definite choledocholithiasis noted. The patient has a history of alcohol abuse. At the time of discharge, she said she was feeling good. She was eating breakfast. There were no complications. She will be followed up obviously as an outpatient for further evaluation and treatment. She had no complaints of any abdominal discomfort, nausea, vomiting at time of discharge. Otherwise, the patient was COVID negative. Other lab tests include her hepatitis screen, which was all nonreactive for A, B and C. Influenza was negative as well. IMPRESSION: Cirrhosis of the liver, elevated liver enzymes, severe protein malnutrition, hypokalemia. The patient is to be followed up as an outpatient here in the next week or sooner. Also encouraged no smoking or alcohol use obviously. Regular diet. Decreased activity. ODALYS RODRIGUEZ MD DR: BELKYS/yan JOB#: [id number] / [id number]
== END 2019-06-30 11:58 | disposition home or self-care (01) ==
LOC: ER 23:15 → INTOOBSV 06-29 01:00 → 1 SOUTH 06-29 01:00
PROVIDERS: ADMIT Family Medicine; ATTEND Family Medicine
DX: K74.60 Unspecified cirrhosis of liver (principal); R11.2 Nausea with vomiting, unspecified; E86.0 Dehydration; J44.9 Chronic obstructive pulmonary disease, unspecified; E87.6 Hypokalemia; I10 Essential (primary) hypertension; E11.9 Type 2 diabetes mellitus without complications; E43 Unspecified severe protein-calorie malnutrition; F17.210 Nicotine dependence, cigarettes, uncomplicated; B34.9 Viral infection, unspecified; Z85.038 Personal history of other malignant neoplasm of large intestine; Z79.899 Other long term (current) drug therapy; Z90.710 Acquired absence of both cervix and uterus
CPT/HCPCS: 36415; 74022; 76705; 80048; 80076; 80307; 81001; 82550; 83690; 83735; 83880; 84443; 84484; 85025; 85379; 85610; 85730; 86705; 86709; 86803; 87340; 87804; 93005; 94640; 96361; 96374; 96375; 99285; G0378; J2405; J3490; J7120; 99284; G0379

== ENCOUNTER 2020-01-10 21:20 | Emergency (ER) | payer MEDICAID ==
[~2020-01-10] VITALS: Ht 162.6 cm; Wt 76.7 kg
[~2020-01-10 21:20] MED LIST changes: +ALBU2.5V8 IH; +BUDE90AE INH
[2020-01-10 21:23] VITALS: BP 145/82
--- NOTE | 2020-01-10 22:06 | RAD ---
Exam: Right knee 3 views INDICATION: Knee pain, fall TECHNIQUE: Frontal, lateral and oblique views of the right knee Comparisons: None FINDINGS: Bone mineralization is normal. No acute or healed fractures. Soft tissues are unremarkable. Joint spaces are well-maintained. IMPRESSION: No acute osseous abnormality. Electronically signed by: Tyron Smith MD (01/10/2020 10:03 PM) JOSE
--- NOTE | 2020-01-10 22:23 | PHYS DOC ---
Past History Past Medical History: Alcoholism, Cancer, COPD, Hypertension Additional Past Medical Histor: colon cancer, cirrohsis of the liver Past Surgical History: Cholecystectomy, Hysterectomy, Oophorectomy Additional Past Surgical Histo: surgery for colon cancer; partial amputation left foot Alcohol Use: Heavy Drug Use: None Adult General Chief Complaint Chief Complaint: MECHANICAL FALL [facility] Patient 64-year-old female presents to the emergency room complaining of right knee pain. Patient has been drinking and states that her knee came out from under her and she fell directly on it. She is walked on it and has been able to move it without any difficulty. She denies any other traumas. She denies hitting her head. Review of Systems Review of Systems Complete ROS is negative unless otherwise documented in HPI Allergies Allergies Allergies Coded Allergies Type Severity Reaction Last Updated Verified No Known Drug Allergies 03/18/19 No Physical Exam Physical Exam General: Awake, alert, NAD. Well Nourished, well hydrated. Cooperative HEENT: Atraumatic, EOMI, PERRL, airway patent, moist oral mucosa Neck: Supple, trachea midline Respiratory: CTA bilaterally, normal effort, no wheezing/crackles CV: RRR, no murmur, cap refill <2 GI: Soft, nondistended, nontender, no masses MSK: No obvious deformities Skin: Warm, dry, intact Neuro: A&O x3, speech NL, sensory and motor grossly intact, no focal deficits Psych: Normal affect, normal mood, not suicidal or homicidal Current Patient Data Vital Signs Vital Signs Date Time Temp Pulse Resp B/P (MAP) Pulse Ox O2 Delivery O2 Flow Rate FiO2 01/10/20 21:23 97.8 66 18 145/82 (103) 96 Room Air EKG EKG [] Radiology/Procedures Radiology/Procedures [] Heart Score Risk Factors: Risk Factors: DM, Current or recent (<one month) smoker, HTN, HLP, family history of CAD, obesity. Risk Scores: Risk Factors: DM, Current or recent (<one month) smoker, HTN, HLP, family history of CAD, obesity. Course & Med Decision Making Course & Med Decision Making Pertinent Labs and Imaging studies reviewed. (See chart for details) Patient is 64-year-old female presents to the emergency room with right knee pain. X-rays were done and are negative. Her son is willing to pick her up. Patient's test results and vitals while in the ED were fully reviewed and discussed with the patient. Patient is stable and at this time does not need admission to the hospital. We have discussed strict return precautions and the importance of following up with their Primary Care Physician. Patient stated understanding and was given an opportunity to ask any questions. Patient is in agreement with plan. Dragon Disclaimer Dragon Disclaimer This electronic medical record was generated, in whole or in part, using a voice recognition dictation system. Departure Departure: Impression: Primary Impression: Fall Additional Impressions: Knee pain Alcoholism Disposition: 01 DC HOME SELF CARE/HOMELESS Condition: STABLE Referrals: ODALYS RODRIGUEZ MD (PCP) Patient Instructions: Chronic Alcoholism, Knee Pain Problem Qualifiers BRAEDEN ANTONY MD Jan 10, 2020 22:23
== END 2020-01-10 22:33 | disposition home or self-care (01) ==
LOC: ER 21:20
DX: M25.561 Pain in right knee (principal); J44.9 Chronic obstructive pulmonary disease, unspecified; I10 Essential (primary) hypertension; F10.20 Alcohol dependence, uncomplicated; Y90.9 Presence of alcohol in blood, level not specified; W18.39XA Other fall on same level, initial encounter; Y93.89 Activity, other specified; Y92.89 Other specified places as the place of occurrence of the external cause; Y99.8 Other external cause status
CPT/HCPCS: 73562; 99283

== ENCOUNTER 2020-02-18 23:52 | Emergency (ER) | payer MEDICAID ==
[~2020-02-18] VITALS: Ht 162.6 cm; Wt 72.4 kg
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
[2020-02-19] MEDS ORDERED: IV RINGERS SOLUTION,LACTATED 1,000 ML IV SCH (00:30)
[2020-02-19 00:58] LABS: BASO # 0.1 x10^3/uL (0.0-0.2); BASO % 1 % (0-3); EOS # 0.4 x10^3/uL (0.0-0.7); EOS % 6 % (0-3); HEMATOCRIT 44.4 % (36.0-47.0); HEMOGLOBIN 14.9 g/dL (12.0-15.5); LYMPH # 2.3 x10^3/uL (1.0-4.8); LYMPH % 31 % (24-48); MEAN CORPUSCULAR HEMOGLOBIN 32 pg (25-35); MEAN CORPUSCULAR HGB CONC 34 g/dL (31-37); MEAN CORPUSCULAR VOLUME 95 fL (79-100); MONO # 0.4 x10^3/uL (0.0-1.1); MONO % 6 % (0-9); NEUT # 4.2 x10^3uL (1.8-7.7); NEUT % 56 % (31-73); PLATELET COUNT 192 x10^3/uL (140-400); RED CELL DISTRIBUTION WIDTH 13.2 % (11.5-14.5); WHITE BLOOD COUNT 7.4 x10^3/uL (4.0-11.0)
[2020-02-19 01:09] LABS: CALCIUM 8.7 mg/dL (8.5-10.1); CREATININE 0.9 mg/dL (0.6-1.0); GFR 62.6; POTASSIUM 3.5 mmol/L (3.5-5.1)
--- NOTE | 2020-02-19 01:18 | RAD ---
CT HEAD AND CERVICAL SPINE WO Date: 02/19/2020 12:04 AM Clinical Indication: Reason: dizzy, neck pain, Lt leg weak / Spl. Instructions: / History: Comparison: None. Technique: 5 mm axial tomographic images were obtained of the head without contrast. These were viewed on brain and bone windows. CT imaging of the cervical spine was performed without contrast. Coronal and sagittal reformatted images were performed. One or more of the following dose reduction techniques were utilized: Automated exposure control (AEC), Adjustment of mA and/or kV according to patient size, Use of iterative reconstruction technique such as ASiR, CT scan done according to ALARA and image gently/image wisely HEAD FINDINGS: The brain parenchyma is normal in attenuation. No intra- or extra-axial mass or fluid collection. No acute hemorrhage. The ventricles are normal in size, shape, and morphology. The rivas-white matter junction is normal. The basilar cisterns are patent. The visualized paranasal sinuses are normal. The visualized portions of the orbits and globes are normal. The mastoid air cells are clear. No aggressive osseous lesion or fracture. CERVICAL SPINE FINDINGS: The cervical spine is normally aligned. No acute fracture. No aggressive lytic or blastic osseous lesion. Moderate multilevel degenerative disc height loss. Multilevel disc protrusions and marginal osteophytes results in multilevel mild spinal canal stenosis. Multilevel uncovertebral and facet arthrosis results in multilevel mild to moderate neural foraminal narrowing. The thyroid gland is normal. No cervical lymphadenopathy. The visualized aerodigestive tract is unremarkable. The visualized lung apices are clear. IMPRESSION: 1. No acute intracranial process. 2. No acute osseous abnormality of the cervical spine. Electronically signed by: Segundo Cash MD (02/19/2020 1:16 AM) [facility]
--- NOTE | 2020-02-19 01:21 | RAD ---
CHEST AP ONLY INDICATION: Reason: dyspnea / Spl. Instructions: / History: . COMPARISON STUDY: None. FINDINGS: Lungs: Normal lung volume. No pulmonary mass or consolidation. The tracheobronchial tree and hilar structures are normal. Pleura: No pleural effusion or pneumothorax. Heart and Mediastinum: Cardiomegaly.. Tortuosity of the thoracic aorta. IMPRESSION: No acute cardiopulmonary process. Electronically signed by: Segundo Cash MD (02/19/2020 1:19 AM) [facility]
[2020-02-19 01:22] LABS: ALBUMIN 3.6 g/dL (3.4-5.0); C REACTIVE PROTEIN 4.1 mg/L (0-3.3); DIRECT BILIRUBIN 0.2 mg/dL (0.0-0.2); MAGNESIUM 1.9 mg/dL (1.8-2.4)
[2020-02-19 01:34] LABS: BARBITURATES NEG (NEG); BENZODIAZEPINES NEG (NEG); CANNABINOIDS NEG (NEG); COCAINE NEG (NEG); METHADONE NEG (NEG); OPIATES NEG (NEG); PHENCYCLIDINE NEG (NEG)
[2020-02-19 01:40] LABS: AMPHETAMINE/METHAMPHETAMINE NEG (NEG)
[2020-02-19 01:41] LABS: BACTERIA,URINE 0 /HPF (0-FEW); BILIRUBIN,URINE NEG (NEG); CLARITY,URINE CLEAR; COLOR,URINE YELLOW; GLUCOSE,URINE NEG (NEG); NITRITE,URINE NEG (NEG); RBC,URINE OCC /HPF (0-2); SQUAMOUS EPITHELIAL CELL,UR OCC /LPF; UROBILINOGEN,URINE 0.2 mg/dL (0.2 mg/dL); WBC,URINE OCC /HPF (0-4)
[2020-02-19] MEDS ORDERED: cloNIDine TTS-2 1 PATCH PATCH TD ONE (02:15)
[2020-02-19] MEDS ORDERED: cloNIDine HCL 0.1 MG TABLET PO ONE (02:15)
[2020-02-19] MEDS ORDERED: HYDR-1179 PO (05:55)
[2020-02-19] MEDS ORDERED: KETOROLAC 30 MG/ML VIAL. ONE (05:56)
[2020-02-19 06:19] VITALS: BP 110/82
[2020-02-19] MEDS ORDERED: KETOROLAC 30 MG/ML VIAL. IVP ONE (06:30)
== END 2020-02-19 06:20 | disposition home or self-care (01) ==
LOC: ER 23:52
DX: M79.662 Pain in left lower leg (principal); G89.29 Other chronic pain; G62.9 Polyneuropathy, unspecified; M62.838 Other muscle spasm; M47.892 Other spondylosis, cervical region; I10 Essential (primary) hypertension; F10.20 Alcohol dependence, uncomplicated; M19.90 Unspecified osteoarthritis, unspecified site; J44.9 Chronic obstructive pulmonary disease, unspecified; Z76.5 Malingerer [conscious simulation]; Z91.14 Patient's other noncompliance with medication regimen; Y90.0 Blood alcohol level of less than 20 mg/100 ml
CPT/HCPCS: 36415; 70450; 71045; 72125; 80048; 80076; 80307; 81001; 82150; 82550; 83690; 83735; 83880; 84443; 84484; 85025; 85379; 85610; 85730; 86140; 93005; 96361; 96374; 99285; G0480; J1885; J7120

== ENCOUNTER → 2020-12-22 | Outpatient (CLI) | payer MEDICAID ==
[~2020-12-22] MED LIST changes: +ACET325T9 PO; -ACYC800T PO; +ACYC800T88 PO; +BACL10TA PO; +HYDR-1179 PO
== END ==
LOC: LAB 14:12
PROVIDERS: ATTEND Internal Medicine Gastroenterology
DX: R12 Heartburn (principal); Z01.812 Encounter for preprocedural laboratory examination; Z20.822 Contact with and (suspected) exposure to COVID-19; R10.9 Unspecified abdominal pain
CPT/HCPCS: U0003

== ENCOUNTER → 2020-12-26 | Day surgery (SDC) | payer MEDICAID ==
[~2020-12-26] MED LIST changes: +IPRATRPIUM/ALBUTEROL 0.5/2.5MG 3 ML NEBU. NEB PRN; +IV RINGERS SOLUTION,LACTATED 1,000 ML IV SCH; +KETAMINE HCL IN NACL, ISO-OSM 50 MG/5 ML SYRINGE ONE; +LIDOCAINE 2% PF 5 ML VIAL. ONE; +MIDAZOLAM HCL PF 2 MG/2 ML VIAL. IV ONE; +ONDANSETRON PF 4 MG/2 ML VIAL. IV PRN; +PROPOFOL 10,000 MCG/ML (20ML) VIAL IV ONE
--- NOTE | 2020-12-26 09:50 | NUR ---
Patient has irregular hear rythm, elevated blood pressure. No complaints of c/p, sob, dizziness, headache. Anesthesia notified. EKG ordered.
--- NOTE | 2020-12-26 10:07 | EKG ---
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
[2020-12-26 11:34] VITALS: BP 173/104
== END | disposition home or self-care (01) ==
LOC: SURG 09:18
PROVIDERS: ATTEND Internal Medicine Gastroenterology
DX: R13.10 Dysphagia, unspecified (principal); R12 Heartburn; R10.10 Upper abdominal pain, unspecified; K44.9 Diaphragmatic hernia without obstruction or gangrene; K31.89 Other diseases of stomach and duodenum; K21.9 Gastro-esophageal reflux disease without esophagitis; J44.9 Chronic obstructive pulmonary disease, unspecified; F17.210 Nicotine dependence, cigarettes, uncomplicated; Z90.49 Acquired absence of other specified parts of digestive tract; Z90.710 Acquired absence of both cervix and uterus; Z98.51 Tubal ligation status; Z98.890 Other specified postprocedural states; Z79.899 Other long term (current) drug therapy; Z72.89 Other problems related to lifestyle; Z85.038 Personal history of other malignant neoplasm of large intestine
CPT/HCPCS: 43239; 43249; 93005; J2001; J2704; J7120; 43220

== ENCOUNTER → 2021-01-01 | Outpatient (CLI) | payer MEDICAID ==
[2020-12-26 11:34] VITALS: BP 173/104
[~2021-01-01] MED LIST changes: -IPRATRPIUM/ALBUTEROL 0.5/2.5MG 3 ML NEBU. NEB PRN; -IV RINGERS SOLUTION,LACTATED 1,000 ML IV SCH; -KETAMINE HCL IN NACL, ISO-OSM 50 MG/5 ML SYRINGE ONE; -LIDOCAINE 2% PF 5 ML VIAL. ONE; -MIDAZOLAM HCL PF 2 MG/2 ML VIAL. IV ONE; -ONDANSETRON PF 4 MG/2 ML VIAL. IV PRN; -PROPOFOL 10,000 MCG/ML (20ML) VIAL IV ONE
--- NOTE | 2021-01-01 13:50 | RAD ---
Ultrasound of the abdomen 01/01/2021 CLINICAL HISTORY: Upper abdominal pain. TECHNIQUE: A real-time ultrasound examination of the abdomen was performed. Multiple images were obta ined. FINDINGS: Comparison is made to a CT scan of the abdomen dated 03/08/2019. The gallbladder is not visualized consistent with a cholecystectomy. The common bile duct measures 8. 7 mm in diameter which is within the upper limits of normal. The liver is normal in size measuring 12 .9 cm in length. Increased echogenicity of the liver parenchyma is seen consistent with fatty infiltr ation. The spleen is within normal limits. A measures 12.7 cm in length. The pancreas is not well-vis ualized due to overlying bowel gas. Both kidneys are within normal limits in size and echogenicity. T he abdominal aorta and inferior vena cava are not well-visualized due to overlying bowel gas. No free fluid is seen. IMPRESSION: 1. Post cholecystectomy. 2. Fatty infiltration of the liver. Electronically signed by: Rizwan Gifford MD (01/01/2021 1:47 PM) [id number]
== END ==
LOC: US 09:44
PROVIDERS: ATTEND Internal Medicine Gastroenterology
DX: K76.0 Fatty (change of) liver, not elsewhere classified (principal); Z90.49 Acquired absence of other specified parts of digestive tract
CPT/HCPCS: 76700